=== PATIENT | male | born 1950 | race Caucasian/White ===

== ENCOUNTER → 2024-04-04 | Outpatient (CLI) | payer OTHER | END | disposition home or self-care (01) | LOC: RAH 11:07 | PROVIDERS: ATTEND Internal Medicine Cardiovascular Disease | DX: Z13.6 Encounter for screening for cardiovascular disorders (principal) | CPT/HCPCS: 75571 ==

== ENCOUNTER → 2024-05-25 | Outpatient (CLI) | payer OTHER | END | disposition home or self-care (01) | LOC: SHCH 10:45 → EDUNIT# 11:20 | PROVIDERS: ATTEND Internal Medicine Cardiovascular Disease | DX: I87.2 Venous insufficiency (chronic) (peripheral) (principal) | CPT/HCPCS: 93970 ==

== ENCOUNTER → 2024-06-28 | Outpatient (CLI) | payer OTHER ==
[2024-06-28] MEDS: REGADENOSON 0.4 MG/5 ML PF SYG IVP ONE (10:15)
== END | disposition home or self-care (01) ==
LOC: SHCH 07:49
PROVIDERS: ATTEND Internal Medicine Cardiovascular Disease
DX: I25.10 Atherosclerotic heart disease of native coronary artery without angina pectoris (principal); I25.84 Coronary atherosclerosis due to calcified coronary lesion; R06.00 Dyspnea, unspecified
CPT/HCPCS: 78452; 93017; J2785; A9500 ×2

== ENCOUNTER → 2024-08-15 | Outpatient (CLI) | payer OTHER ==
--- NOTE | 2024-08-16 17:55 | HMCSR ---
APPROVED REPORT Right Lower Extremity Venous Study for DVT. Indications s/p Clarivein Right GSV 08/12/2024 Vein Imaging CFV (R): Normal flow, augmentation and compression. No evidence of DVT. 11.5mm 2372ms of reflux. SFJ (R): Normal flow, augmentation and compression. No evidence of DVT. FEM (R): Normal flow, augmentation and compression. No evidence of DVT. POP (R): Normal flow, augmentation and compression. No evidence of DVT. DFV (R): Normal flow, augmentation and compression. No evidence of DVT. PTV (R): Normal flow, augmentation and compression. No evidence of DVT. Peroneals (R): Normal flow, augmentation and compression. No evidence of DVT. Technologist Impression Deep veins of the right lower extremity appear patent and compressible without thrombus. Right GSV is closed from proximal thigh to mid calf. Conclusion Successful ablation of right greater saphenous vein No DVT Conclusion Successful ablation of right greater saphenous vein No DVT
== END | disposition home or self-care (01) ==
LOC: SHCH 14:42
PROVIDERS: ATTEND Internal Medicine Cardiovascular Disease
DX: Z09 Encounter for follow-up examination after completed treatment for conditions other than malignant neoplasm (principal); I87.2 Venous insufficiency (chronic) (peripheral)
CPT/HCPCS: 93971

== ENCOUNTER → 2024-08-29 | Outpatient (CLI) | payer OTHER ==
--- NOTE | 2024-08-30 17:15 | HMCSR ---
APPROVED REPORT Left Lower Extremity Venous Study for DVT. Indications z09; s/p Clarivein Left GSV Vein Imaging CFV (L): Normal flow, augmentation and compression. No evidence of DVT. 13.0mm 1217ms of revlux. SFJ (L): Normal flow, augmentation and compression. No evidence of DVT. FEM (L): Normal flow, augmentation and compression. No evidence of DVT. POP (L): Normal flow, augmentation and compression. No evidence of DVT. DFV (L): Normal flow, augmentation and compression. No evidence of DVT. PTV (L): Normal flow, augmentation and compression. No evidence of DVT. Peroneals (L): Normal flow, augmentation and compression. No evidence of DVT. Technologist Impression Deep veins of the left lower extremity appear patent and compressible without thrombus. Left GSV is closed from junction to mid calf. Conclusion Successful ablation of left greater saphenous vein No DVT Conclusion Successful ablation of left greater saphenous vein No DVT
== END | disposition home or self-care (01) ==
LOC: SHCH 13:39
PROVIDERS: ATTEND Internal Medicine Cardiovascular Disease
DX: I87.2 Venous insufficiency (chronic) (peripheral) (principal)
CPT/HCPCS: 93971